=== PATIENT | female | born 1950 | race Caucasian/White ===

== ENCOUNTER 2020-04-24 07:44 | Observation (INO) ==
[2020-04-24 08:22] LABS: Basophils % 0.3 % (0.0-0.8); Eosinophils # 0.1 10*3/uL (0.0-0.87); Hematocrit 44.6 VOL% (35.7-47.0); Immature Granulocytes % 0.3 %; Immature Granulocytes Absolute 0.02 #; Lymphocytes % 28.3 % (21.3-54.2); Mean Corpuscular HGB Conc 31.4 GM/DL (32-36); Mean Corpuscular Volume 95.1 FL (87-102); Mean Platelet Volume 10.1 FL (9.6-12.0); Neutrophils % 64.1 % (38.7-73.9); Platelet Count 166 T/CUMM (130-400); Red Blood Count 4.69 MC/CUMM (3.8-5.5); Red Cell Distribution Width 12.6 % (9.3-17.3)
[2020-04-24 08:40] LABS: Alanine Aminotransferase 18 U/L (13-56); Albumin 3.8 G/DL (3.4-5.0); Alkaline Phosphatase 120 U/L (45-117); Aspartate Amino Transferase 17 U/L (0-37); Bilirubin,Total < 0.39 MG/DL (0.2-1.0); Blood Urea Nitrogen 15 MG/DL (7-18); Calcium 8.9 MG/DL (8.5-10.1); Estimated Glom Filtration Rate 80 ML/MIN; Glucose 101 MG/DL (74-106); Osmolality,Calculated 275.7 MOS/KG (273-304); Total Protein 7.1 G/DL (6.4-8.3)
[2020-04-24 08:55] LABS: Apearance,Urine CLEAR (Clear); Bilirubin,Urine Negative (Negative); Blood, Urine Negative (Negative); Glucose,Urine (UA) Negative (Negative); Ketones,Urine Negative (Negative); Mucus,Urine Occasional /LPF (Occasional); Nitrite,Urine Negative (Negative); Protein,Urine Negative; RBC,Urine <1 /HPF (0-4); Squamous Epithelial Cell,Urine Occasional /HPF (0-10); Urine Color Yellow (Yellow); Urine Specific Gravity 1.013 (1.001-1.035); Urine Urobilinogen < 2.0 EU/DL (0.2-1.0); WBC,Urine <1 /HPF (0-6)
[2020-04-24] MEDS ORDERED: MORPHINE 4 MG/1 ML VIAL IV STA (09:39)
[2020-04-24] MEDS ORDERED: ONDANSETRON 4 MG/2 ML VIAL IV STA (09:39)
[2020-04-24] MEDS ORDERED: ACETAMINOPHEN 325 MG TABLET PO PRN (14:35)
[2020-04-24] MEDS ORDERED: ONDANSETRON 4 MG/2 ML VIAL IV PRN (14:35)
[2020-04-24] MEDS ORDERED: GLUCAGON 1 MG VIAL IM PRN (14:35)
[2020-04-24] MEDS ORDERED: DEXTROSE 50% 25 GM/50 ML VIAL IV PRN (14:35)
[2020-04-24] MEDS ORDERED: MAGNESIUM SULF RIDER 4 GM in PREMIX 1 EACH IV PRN (14:40)
[2020-04-24] MEDS ORDERED: MAGNESIUM SULF RIDER 2 GM in PREMIX 1 EACH IV PRN (14:40)
[2020-04-24] MEDS: SODIUM CHLORIDE 0.45% 1,000 ML IV SCH (16:09)
[2020-04-24] MEDS: NICOTINE 14 MG/24 HR PATCH TRANSDERM SCH (16:09)
[2020-04-24] MEDS: metroNIDAZOLE INJ 500 MG in PREMIX 1 EACH IV SCH ×2 (16:10→21:33)
[2020-04-24] MEDS: ENOXAPARIN 40 MG/0.4 ML SYRINGE SUBCUT SCH (16:10)
[2020-04-24] MEDS: CIPROFLOXACIN INJ 400 MG in PREMIX 1 EACH IV SCH (18:28)
[2020-04-25] MEDS: KETOROLAC 15 MG/1 ML VIAL IV PRN ×2 (02:46→18:28)
[2020-04-25] MEDS: SODIUM CHLORIDE 0.45% 1,000 ML IV SCH ×3 (02:47→22:38)
[2020-04-25] MEDS: metroNIDAZOLE INJ 500 MG in PREMIX 1 EACH IV SCH ×4 (03:02→20:39)
[2020-04-25 04:27] LABS: Basophils % 0.4 % (0.0-0.8); Eosinophils # 0.1 10*3/uL (0.0-0.87); Eosinophils % 1.8 % (0.00-10.9); Hemoglobin 12.9 GM/DL (12.0-16.0); Immature Granulocytes % 0.4 %; Immature Granulocytes Absolute 0.02 #; Lymphocytes # 1.6 10*3/uL (1.4-4.0); Lymphocytes % 34.6 % (21.3-54.2); Mean Corpuscular HGB Conc 31.5 GM/DL (32-36); Mean Corpuscular Volume 96.5 FL (87-102); Mean Platelet Volume 10.6 FL (9.6-12.0); Monocytes % 7.2 % (1.7-12.7); Neutrophils % 55.6 % (38.7-73.9); Platelet Count 143 T/CUMM (130-400); Red Blood Count 4.25 MC/CUMM (3.8-5.5); Red Cell Distribution Width 12.7 % (9.3-17.3); White Blood Count 4.6 T/CUMM (4-12)
[2020-04-25 04:55] LABS: Albumin 3.3 G/DL (3.4-5.0); Bilirubin,Total 1.1 MG/DL (0.2-1.0); Calcium 8.2 MG/DL (8.5-10.1); Osmolality,Calculated 274.5 MOS/KG (273-304); Risk Ratio 2.15; Thyroid Stimulating Hormone 7.04 uIU/ml (0.358-3.74); Total Protein 6.1 G/DL (6.4-8.3); VLDL CHOLESTEROL 21.8 MG/DL
[2020-04-25] MEDS: CIPROFLOXACIN INJ 400 MG in PREMIX 1 EACH IV SCH ×2 (05:38→17:53)
[2020-04-25] MEDS ORDERED: GABAPENTIN 100 MG CAPSULE PO PRN (08:27)
[2020-04-25] MEDS: NICOTINE 14 MG/24 HR PATCH TRANSDERM SCH (09:03)
[2020-04-25] MEDS: PANTOPRAZOLE 40 MG TABLET PO SCH (09:03)
[2020-04-25] MEDS: LEVOTHYROXINE 112 MCG TABLET PO SCH (10:35)
[2020-04-25] MEDS: SERTRALINE 100 MG TABLET PO SCH (10:35)
[2020-04-25] MEDS: GLUCOSAMINE D3 BOSWELLIA SERR PO SCH (10:36)
[2020-04-25] MEDS ORDERED: ALBUTEROL 2.5 MG/3 ML NEB RESP TX PRN (11:00)
[2020-04-25] MEDS: ENOXAPARIN 40 MG/0.4 ML SYRINGE SUBCUT SCH (14:06)
[2020-04-25] MEDS ORDERED: diphenhydrAMINE CAP 25 MG CAPSULE PO PRN (20:03)
[2020-04-25] MEDS: HYDROmorphone 2 MG/1 ML VIAL IM PRN (20:40)
[2020-04-25] MEDS ORDERED: SIMVASTATIN 40 MG TABLET PO SCH (21:00)
[2020-04-26] MEDS: HYDROmorphone 2 MG/1 ML VIAL IM PRN ×2 (01:54→06:59)
[2020-04-26] MEDS: metroNIDAZOLE INJ 500 MG in PREMIX 1 EACH IV SCH ×2 (02:26→08:52)
[2020-04-26 05:33] LABS: Basophils % 0.4 % (0.0-0.8); Eosinophils # 0.1 10*3/uL (0.0-0.87); Eosinophils % 1.6 % (0.00-10.9); Hematocrit 40.3 VOL% (35.7-47.0); Hemoglobin 12.6 GM/DL (12.0-16.0); Immature Granulocytes % 0.4 %; Immature Granulocytes Absolute 0.02 #; Lymphocytes # 1.6 10*3/uL (1.4-4.0); Lymphocytes % 31.6 % (21.3-54.2); Mean Corpuscular HGB Conc 31.3 GM/DL (32-36); Mean Corpuscular Volume 95.7 FL (87-102); Mean Platelet Volume 10.9 FL (9.6-12.0); Monocytes % 6.7 % (1.7-12.7); Neutrophils % 59.3 % (38.7-73.9); Platelet Count 150 T/CUMM (130-400); Red Blood Count 4.21 MC/CUMM (3.8-5.5); Red Cell Distribution Width 12.6 % (9.3-17.3); White Blood Count 5.1 T/CUMM (4-12)
[2020-04-26] MEDS: CIPROFLOXACIN INJ 400 MG in PREMIX 1 EACH IV SCH (05:55)
[2020-04-26 06:05] LABS: Albumin 3.2 G/DL (3.4-5.0); Bilirubin,Total 0.5 MG/DL (0.2-1.0); Calcium 8.1 MG/DL (8.5-10.1); Osmolality,Calculated 269.8 MOS/KG (273-304); Total Protein 6.1 G/DL (6.4-8.3)
[2020-04-26] MEDS: LEVOTHYROXINE 112 MCG TABLET PO SCH (06:59)
[2020-04-26 07:47] VITALS: BP 136/75
[2020-04-26] MEDS: SODIUM CHLORIDE 0.45% 1,000 ML IV SCH (08:33)
[2020-04-26] MEDS: GLUCOSAMINE D3 BOSWELLIA SERR PO SCH (08:33)
[2020-04-26] MEDS: NICOTINE 14 MG/24 HR PATCH TRANSDERM SCH (08:53)
[2020-04-26] MEDS: SERTRALINE 100 MG TABLET PO SCH (08:53)
[2020-04-26] MEDS: PANTOPRAZOLE 40 MG TABLET PO SCH (08:54)
== END 2020-04-26 10:32 | disposition home or self-care (01) ==
LOC: N.ED 07:44 → N.EDINP 07:44 → SUATTDRO 14:31 → N.EDINP 15:33 → N.5E 15:43
PROVIDERS: ADMIT Internal Medicine; ATTEND Internal Medicine Critical Care Medicine